=== PATIENT | female | born 1975 | race Caucasian/White ===

== ENCOUNTER 2016-11-13 16:32 | Emergency (ER) | payer MEDICARE | END 2016-11-13 17:12 | disposition home or self-care (01) | LOC: ER 16:32 | DX: M79.644 Pain in right finger(s) (principal); W49.04XA Ring or other jewelry causing external constriction, initial encounter; F17.210 Nicotine dependence, cigarettes, uncomplicated; Z79.899 Other long term (current) drug therapy; Z88.5 Allergy status to narcotic agent | CPT/HCPCS: 99282 ==